=== PATIENT | male | born 1960 | race Caucasian/White ===

== ENCOUNTER 2024-11-22 10:48 | Outpatient (CLI) | payer OTHER, SELFPAY ==
[2024-11-22 17:56] LABS: Basophils % 0.4 % (0.1-2.0); Eosinophils # 0.1 Kmm3 (0.0-0.4); Eosinophils % 0.7 % (0.1-12.0); Hematocrit 46.4 % (42.0-52.0); Hemoglobin 15.4 g/dL (14.1-18.0); Immature Granulocytes # 0.12 10^3uL; Immature Granulocytes % 1.3 %; Lymphocytes % 10.9 % (10-50); Mean Corpuscular HGB Conc 33.2 g/dL (31.8-35.4); Mean Corpuscular Hemoglobin 28.3 pg (27.0-31.2); Mean Corpuscular Volume 85.1 fl (80-94); Mean Platelet Volume 10.6 fl (7.4-10.4); Monocytes # 0.7 K/mm3 (0.1-1.0); Monocytes % 8.1 % (1.7-9.3); Neutrophils # 7.2 K/mm3 (1.8-7.8); Neutrophils % 78.6 % (37.0-80.0); Nucleated Red Blood Cells # 0 10^3/uL; Nucleated Red Blood Cells % 0 %; Platelet Count 350 K/mm3 (142-424); Red Blood Count 5.45 M/mm3 (4.60-6.20); Red Cell Distribution Width 12.2 % (11.5-17.5); Red Cell Distribution Width-SD 37.7 fL; White Blood Count 9.1 K/mm3 (4.8-10.8)
[2024-11-22 18:28] LABS: Alanine Aminotransferase 83 U/L (12-78); Albumin Level 4.2 g/dl (3.5-5.0); Albumin/Globulin Ratio 1.2 (1.1-1.8); Alkaline Phosphatase 105 U/L (38-126); Anion Gap 11.8 mEq/L (5-15); Aspartate Amino Transferase 39 U/L (17-59); Blood Urea Nitrogen 18 mg/dl (9-20); Calcium 9.2 mg/dl (8.4-10.2); Carbon Dioxide 29 mmol/L (22.0-30.0); Chloride 102 mmol/L (98-107); Chol/HDL Ratio 3.9 (1-3.5); Cholesterol 113 mg/dl (140-200); Estimated Glomerular Filt Rate 75 ml/min (>60); GFR (African American) 91 ML/MIN (>60); Globulin 3.5 g/dL (1.3-3.2); Glucose 103 mg/dl (74-100); HDL Cholesterol 29 mg/dl (40-60); Potassium 4.8 mmoL/L (3.5-5.1); Sodium 138 mmol/L (136-145); Total Protein,Serum 7.7 g/dl (6.3-8.2); Triglycerides 115 mg/dl (30-150); VLDL Cholesterol 23 mg/dL (0-40)
[2024-11-22 18:39] LABS: Erythrocyte Sedimentation Rate 12 mm/hr (0-20)
[2024-11-22 18:42] LABS: C-Reactive Protein 11.3 mg/L (0-4); Direct LDL Cholesterol 60.65 mg/dL (100-129)
[2024-11-22 18:45] LABS: 25-OH Vitamin D, Total 28.1 ng/mL (30-100)
[2024-11-22 18:46] LABS: T4 (Thyroxine) 8.8 ug/dl (5.53-11.0)
[2024-11-22 19:00] LABS: Thyroid Stimulating Hormone 1.09 uIU/mL (0.465-4.68)
[2024-11-22 19:03] LABS: HIV Combo NEGATIVE (Negative)
[2024-11-22 20:47] LABS: Hepatitis C Ab Qual. W/ RFX NEGATIVE (Negative)
[2024-11-26 15:10] LABS: Lyme Ab CIA Positive (Negative); Lyme Ab IgM CIA Positive (Negative); Lyme IgG CIA Positive (Negative)
== END 2024-11-22 23:59 | disposition home or self-care (01) ==
LOC: LAB.DROPOF 11-26 10:52
PROVIDERS: PCP Nurse Practitioner Family; Visit Provider Nurse Practitioner Family
DX: R53.83 Other fatigue; Z00.00 Encounter for general adult medical examination without abnormal findings; I10 Essential (primary) hypertension; T14.8XXA Other injury of unspecified body region, initial encounter; W57.XXXA Bitten or stung by nonvenomous insect and other nonvenomous arthropods, initial encounter
CPT/HCPCS: 80053; 80061; 80074; 82306; 84436; 84443; 85025; 85651; 86140; 86618; 87389

== ENCOUNTER 2024-12-13 10:50 | Outpatient (CLI) | payer OTHER, SELFPAY ==
[2024-12-13 18:52] LABS: Prostate Specific Ag Screen 6.4 ng/ml (0.0-4.0)
--- OUTSIDE RECORDS SUMMARY | 2024-12-13 22:43 | XMS_ITS | Clinical Summary ---
Author Organization [facility] Address [address] [place] [address] Phone Care Team Providers Care Nurse Sane Name Role Phone Grady Yusuf MD Primary Care Provider [phone] Social History Tobacco Use Types Packs/Day Years Used Date Smoking Tobacco: Never Assessed Sex and Gender Information Value Date Recorded Sex Assigned at Not on file Legal Sex Male 4:59 AM EDT Gender Identity Not on file Sexual Orientation Not on file Plan of Treatment Health Maintenance Due Date Last Done Comments Annual Wellness Exam 1964 Hepatitis C Screening 1979 DTaP/TDaP/Td (1 - Tdap) 1980 Cologuard 2006 Colon Cancer Screening 2006 Colonoscopy 2006 FIT 2006 Sigmoidoscopy 2006 Virtual Colonography 2006 Pneumococcal Vaccine 50+ (1 of 1 - PCV) 2011 Zoster (1 of 2) 2011 COVID-19 Vaccine (2023-2 5 season) 2024 Influenza Vaccine (Season Ended) 2025 Hepatitis B Vaccine Aged Out No longe r eligible based on patient's age to complete this topic Meningococcal B Vaccine Aged Out No l onger eligible based on patient's age to complete this topic Insurance [employer] PPO on file Care Teams Nurse Sane Relationship Specialty Start Date End Date Grady Yusuf MD [address] [place] [id number] PCP - General Family Medicine 06/16/12
== END 2024-12-13 23:59 | disposition home or self-care (01) ==
LOC: LAB.DROPOF 22:41
PROVIDERS: PCP Family Medicine; Visit Provider Family Medicine
DX: Z12.5 Encounter for screening for malignant neoplasm of prostate (principal); Z00.00 Encounter for general adult medical examination without abnormal findings
CPT/HCPCS: G0103